=== PATIENT | female | born 1980 | race Caucasian/White ===

== ENCOUNTER 2017-02-13 19:27 | Observation (INO) ==
[2017-02-13 20:01] LABS: Basophils % 0.3 %; Eosinophils % 0.1 %; Hematocrit 33.3 % (35.3-44.9); Hemoglobin 10.2 g/dL (11.5-15.4); Immature Granulocytes % 0.3 % (0-4); Immature Platelets 4.6 % (1.1-6.1); Lymphocytes # 1.6 K/mcL (0.6-4.6); Lymphocytes % 20.4 %; Mean Corpuscular HGB Conc 30.6 g/dL (31.6-35.5); Mean Corpuscular Hemoglobin 26.3 pg (28.0-33.3); Mean Corpuscular Volume 85.8 fL (83.0-100.0); Mean Platelet Volume 10.7 fL (9.4-12.4); Monocytes # 0.5 K/mcL (0.0-1.3); Monocytes % 6.6 %; Neutrophils # 5.7 K/mcL (1.6-8.9); Platelet Count 252 K/mcL (140-400); Red Blood Count 3.88 M/mcL (3.82-4.97); Red Cell Distribution Width 15.3 % (11.5-14.5); Segmented Neutrophils % 72.3 %
[2017-02-13 20:16] LABS: Acetaminophen < 1.0 mcg/mL (10-30); BUN/Creatinine Ratio 10 (6-26); Blood Urea Nitrogen 5 mg/dL (6-20); Carbon Dioxide 21 mEq/L (23-29); Chloride 109 mEq/L (98-107); Ethanol < 10 mg/dL (0-10); Glucose 101 mg/dL (70-105); Osmolality,Calculated 281 (280-300); Potassium 3.6 mEq/L (3.5-5.1); Salicylate < 5.0 mg/dL (15.0-30.0); Sodium 137 mEq/L (136-145); eGFR For African Americans > 60 (> 60); eGFR For Non-African Americans > 60 (> 60)
[2017-02-13 20:19] LABS: Bilirubin,Urine Negative (Negative); Blood,Urine Small (Negative); Clarity,Urine Cloudy (Clear); Color,Urine Yellow (Yellow); Glucose,Urine (UA) Normal (Normal); Ketones,Urine 80 mg/dL (Negative); Leukocyte Esterase,Urine Moderate (Negative); Nitrite,Urine Positive (Negative); PH,Urine 6.5 pH Units (5.0-8.0); Protein,Urine Negative (Neg-Trace); Specific Gravity,Urine 1.011 (1.010-1.025); Urobilinogen,Urine Normal (Normal)
[2017-02-13 20:21] LABS: Bacteria,Urine Many per hpf (None-Few); Hyaline Casts,Urine None Seen per lpf (None-Few); RBC,Urine 0-3 per hpf (0-3); Squamous Epithelial Cell,Urine Many per lpf (None-Few); WBC,Urine 30-50 per hpf (0-3)
[2017-02-13] MEDS ORDERED: Ipratropium/Albuterol Neb 3 ML IH ONE (20:24)
[2017-02-13 20:26] LABS: Amphetamine Screen,Urine Negative ng/mL (Cutoff=1000); Barbiturate Screen,Urine Negative ng/mL (Cutoff=200); Benzodiazepines Screen,Urine Positive ng/mL (Cutoff=200); Cannabinoid Screen,Urine Positive ng/mL (Cutoff = 50); Cocaine Screen,Urine Negative ng/mL (Cutoff= 300); Opiate Screen,Urine Negative ng/mL (Cutoff=300); Phencyclidine Screen,Urine Negative ng/mL (Cutoff=25)
[2017-02-13] MEDS: predniSONE 20 MG TABLET PO ONE ×2 (20:43→20:51)
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
[2017-02-13] MEDS ORDERED: clonazePAM 0.5 MG TABLET PO STA (21:41)
[2017-02-13] MEDS ORDERED: Ibuprofen 800 MG TABLET PO ONE (22:22)
[2017-02-13] MEDS ORDERED: clonazePAM 0.5 MG TABLET PO ONE (22:29)
[2017-02-13] MEDS ORDERED: cephALEXin 250 MG CAPSULE PO ONE (23:06)
[2017-02-14] MEDS ORDERED: traZODone 50 MG TABLET PO PRN
[2017-02-14] MEDS ORDERED: MOM Conc 10 ML UD.LIQ PO PRN
[2017-02-14] MEDS ORDERED: Haloperidol Lactate 5 MG/ML VIAL IM PRN
[2017-02-14] MEDS ORDERED: Mag Hydrox/Al Hydrox/Simeth 30 ML UDC PO PRN
[2017-02-14] MEDS ORDERED: *HR* LORazepam 1 MG TABLET PO PRN
[2017-02-14] MEDS ORDERED: hydrOXYzine pamoate 25 MG CAPSULE PO PRN
[2017-02-14] MEDS ORDERED: *HR* LORazepam 2 MG/ML VIAL IM PRN
[2017-02-14] MEDS ORDERED: Ibuprofen 400 MG TABLET PO PRN (01:16)
[2017-02-14] MEDS ORDERED: Nicotine 21 MG PATCH.TD24 TD SCH (09:00)
[2017-02-14 09:44] VITALS: BP 111/80
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
--- NOTE | 2017-02-15 16:16 | Electrocardiograph Report ---
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
== END 2017-02-14 13:17 | disposition home or self-care (01) ==
LOC: 1ANU 19:27 → EMEROO 19:27 → 1ANU 02-14 00:47
PROVIDERS: ADMIT Psychiatry & Neurology Psychiatry; ATTEND Psychiatry & Neurology Psychiatry

== ENCOUNTER 2017-09-21 23:26 | Inpatient (IN) ==
[2017-09-21] MEDS ORDERED: 0.9 % Sodium Chloride 1,000 ML IVC ONE (23:32)
--- NOTE | 2017-09-22 00:01 | Emergency Department Note ---
Overdose - MDM Narrative Medical decision making narrative: 37-year-old female with intentional ingestion. [place] level elevated here. Spoke with poison control. Recommendations implemented. Patient is admitted to the hospitalist service. [place] slipped for suicide attempt. - Lab Data Lab results reviewed: Yes I reviewed the patient's lab results. Result diagrams: 09/21/17 23:50 09/21/17 23:50 Lab Results 09/21/17 09/21/17 09/21/17 Range/Units 23:45 23:45 23:45 WBC (4.3-11.1) K/mcL RBC (3.82-4.97) M/mcL Hgb (11.5-15.4) g/dL Hct (35.3-44.9) % MCV (83.0-100.0) fL MCH (28.0-33.3) pg MCHC (31.6-35.5) g/dL RDW (11.5-14.5) % Plt Count (140-400) K/mcL MPV (9.4-12.4) fL Immature Gran % (0-4) % Seg Neutrophils % % Lymphocytes % % Monocytes % % Eosinophils % % Basophils % % Neutrophils # (1.6-8.9) K/mcL Lymphocytes # (0.6-4.6) K/mcL Monocytes # (0.0-1.3) K/mcL Eosinophils # (0.0-0.6) K/mcL Basophils # (0.0-0.2) K/mcL Sodium (136-145) mEq/L Potassium (3.5-5.1) mEq/L Chloride (98-107) mEq/L Carbon Dioxide (23-29) mEq/L BUN (6-20) mg/dL Creatinine (0.60-1.20) mg/dL Est GFR ( Amer) (> 60) Est GFR (Non-Af Amer) (> 60) BUN/Creatinine Ratio (6-26) Glucose (70-105) mg/dL Calculated Osmolality (280-300) Calcium (8.6-10.3) mg/dL TSH (0.340-5.600) mcIU/mL Urine Color Yellow (Yellow) Urine Clarity Clear (Clear) Urine pH 7.0 (5.0-8.0) pH Units Ur Specific [place] 1.011 (1.010-1.025) Urine Protein Negative (Neg-Trace) mg/dL Urine Glucose (UA) Normal (Normal) mg/dL Urine Ketones Negative (Negative) mg/dL Urine Blood Negative (Negative) Urine Nitrite Negative (Negative) Urine Bilirubin Negative (Negative) Urine Urobilinogen Normal (Normal) mg/dL Ur Leukocyte Esterase Negative (Negative) Urine Test Negative (Negative) Salicylates (15.0-30.0) mg/dL Urine Opiates Screen Negative (Jmkayr=279) ng/mL Acetaminophen (10-20) mcg/mL Ur Barbiturates Screen Negative (Qjwwma=546) ng/mL Ur Phencyclidine Scrn Negative (Cutoff=25) ng/mL Ur Amphetamines Screen Negative (Vmgolt=6710) ng/mL U Benzodiazepines Scrn Negative (Oqarru=591) ng/mL [place] (0.6-1.2) mEq/L Urine Cocaine Screen Positive H (Cutoff= 300) ng/mL U Marijuana (THC) Screen Positive H (Cutoff = 50) ng/mL Ur Drug Screen Interp See Below Ethyl Alcohol (Less than 10) mg/dL 09/21/17 09/21/17 09/21/17 Range/Units 23:50 23:50 23:50 WBC 5.5 (4.3-11.1) K/mcL RBC 3.93 (3.82-4.97) M/mcL Hgb 11.0 L (11.5-15.4) g/dL Hct 34.5 L (35.3-44.9) % MCV 87.8 (83.0-100.0) fL MCH 28.0 (28.0-33.3) pg MCHC 31.9 (31.6-35.5) g/dL RDW 14.4 (11.5-14.5) % Plt Count 254 (140-400) K/mcL MPV 10.5 (9.4-12.4) fL Immature Gran % 0.4 (0-4) % Seg Neutrophils % 65.5 % Lymphocytes % 25.2 % Monocytes % 5.1 % Eosinophils % 3.1 % Basophils % 0.7 % Neutrophils # 3.6 (1.6-8.9) K/mcL Lymphocytes # 1.4 (0.6-4.6) K/mcL Monocytes # 0.3 (0.0-1.3) K/mcL Eosinophils # 0.2 (0.0-0.6) K/mcL Basophils # 0.0 (0.0-0.2) K/mcL Sodium 137 (136-145) mEq/L Potassium 3.4 L (3.5-5.1) mEq/L Chloride 107 (98-107) mEq/L Carbon Dioxide 23 (23-29) mEq/L BUN 3 L (6-20) mg/dL Creatinine 0.76 (0.60-1.20) mg/dL Est GFR ( Amer) > 60 (> 60) Est GFR (Non-Af Amer) > 60 (> 60) BUN/Creatinine Ratio 4 L (6-26) Glucose 84 (70-105) mg/dL Calculated Osmolality 280 (280-300) Calcium 9.3 (8.6-10.3) mg/dL TSH 1.722 (0.340-5.600) mcIU/mL Urine Color (Yellow) Urine Clarity (Clear) Urine pH (5.0-8.0) pH Units Ur Specific [place] (1.010-1.025) Urine Protein (Neg-Trace) mg/dL Urine Glucose (UA) (Normal) mg/dL Urine Ketones (Negative) mg/dL Urine Blood (Negative) Urine Nitrite (Negative) Urine Bilirubin (Negative) Urine Urobilinogen (Normal) mg/dL Ur Leukocyte Esterase (Negative) Urine Test (Negative) Salicylates < 2.5 L (15.0-30.0) mg/dL Urine Opiates Screen (Lpsjbt=424) ng/mL Acetaminophen < 10 L (10-20) mcg/mL Ur Barbiturates Screen (Opiocr=924) ng/mL Ur Phencyclidine Scrn (Cutoff=25) ng/mL Ur Amphetamines Screen (Cofqiz=1797) ng/mL U Benzodiazepines Scrn (Svykxh=598) ng/mL [place] 2.5 H* (0.6-1.2) mEq/L Urine Cocaine Screen (Cutoff= 300) ng/mL U Marijuana (THC) Screen (Cutoff = 50) ng/mL Ur Drug Screen Interp Ethyl Alcohol 122 H (Less than 10) mg/dL - EKG Data EKG attestation: Yes I reviewed and interpreted this EKG. EKG results narrative: EKG demonstrates sinus rhythm. Prolonged [place] interval of 210. Other intervals normal. No gross ST elevations or depressions. No acute ischemic findings. No changes from prior EKG. Overdose HPI - General Chief Complaint: ED Psychiatric Symptoms Stated Complaint: overdose Time Seen by Provider: 09/21/17 23:31 Source: patient, EMS Mode of arrival: EMS Limitations: no limitations Nursing Notes Reviewed: Yes Vital Signs Reviewed: Yes - History of Present Illness HPI Narrative: 37-year-old female history of bipolar, Personality disorder presents due to intentional ingestion of lithium. At 10:30 PM she took 4300 mg tablets of her own lithium. She reports one to kill herself. She reports drinking this evening as well. EMS was called and she was brought in for evaluation. She denies any other coingestions. Has a prior history of suicide attempt in the past. Currently complaining of feeling tired and nauseous. Pt Subjective Complaint: intentional overdose Time of Ingestion: 22:30 Intent: suicide attempt Associated symptoms: depression Treatments Prior to Arrival: none - Related Data Home Medications Medication Instructions Recorded Confirmed Levothyroxine [Synthroid] 75 mcg PO QAM 02/07/17 09/21/17 [place] Carbonate 150 mg PO DAILY 02/07/17 09/21/17 [place] Carbonate 300 mg PO QAM AND QHS 02/07/17 09/21/17 Gabapentin [Neurontin] 1,200 mg PO QAM AND QHS 02/13/17 09/21/17 Metoprolol [Lopressor] 25 mg PO DAILY 02/13/17 02/13/17 clonazePAM [Klonopin] 2 mg PO HS 02/13/17 09/21/17 amLODIPine [Norvasc] 10 mg PO DAILY 09/21/17 09/21/17 Allergies Allergy/AdvReac Type Severity Reaction Status Date / Time ketorolac [From Toradol] Allergy Rash Verified 09/21/17 23:31 Paroxetine [From Paxil] Allergy Rash Verified 09/21/17 23:31 promethazine [From Phenergan] Allergy Rash Verified 09/21/17 23:31 tramadol Allergy Rash Verified 09/21/17 23:31 Cyclobenzaprine AdvReac Agitated Verified 09/21/17 23:31 [From Flexeril] All systems ED: reviewed and negative except as stated. Cardiovascular: Denies: chest pain Respiratory: Denies: dyspnea Gastrointestinal: Reports: nausea. Denies: abdominal pain, vomiting Neurological: Reports: weakness Past Medical History - Past Medical History Attestation: Yes The following information was validated with the patient. 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 - Social History Smoking Status: Current every day smoker Smokeless Tobacco Status: No Alcohol use: Reports: occasionally Drug use: Reports: none Physical Exam - General Limitations: no limitations General appearance: alert, in no apparent distress - Head Head exam: atraumatic, normocephalic - Eye Eye exam: Present: normal appearance - ENT ENT exam: normal exam - Neck Neck exam: Present: normal inspection - Chest Chest inspection: Present: normal inspection, symmetric chest wall rise - Respiratory Respiratory exam: Present: normal lung sounds bilaterally - Cardiovascular Cardiovascular exam: Present: regular rate, normal rhythm, normal heart sounds - Abdominal Exam Abdominal exam: Present: soft, Non-Tender. Absent: tenderness - Extremities Exam Extremities exam: Present: normal inspection, full ROM - Expanded Upper Extremity Exam Shoulder exam: Present: normal inspection, full ROM Arm exam: Present: normal inspection, full ROM Elbow exam: Present: normal inspection, full ROM Forearm/Wrist exam: Present: normal inspection, full ROM, other (1 cm laceration to the left distal forearm on the ulnar side. Multiple old healed lacerations) Hand exam: Present: normal inspection, full ROM Vascular exam: Normal: capillary refill, radial pulse - Expanded Lower Extremity Exam Hip/Pelvis exam: Present: normal inspection, full ROM Upper leg exam: Present: normal inspection, full ROM Knee exam: Present: normal inspection, full ROM Lower leg exam: Present: normal inspection, full ROM Ankle exam: Present: normal inspection, full ROM Foot/toe exam: Present: normal inspection, full ROM - Neurological Exam Neurological exam: Present: alert, other (GCS 15. Nonfocal exam.) - Psychiatric Psychiatric exam: Present: suicidal ideation Course Course Narrative: Patient seen and examined. Vital signs reviewed. I had spoken with poison control before the patient arrived. No indication for activated charcoal or lavage. Plan to check a lithium level, labs, EKG and admitted. - Consultations Consultation #1: I spoke with the Poison Control Center. Discussed the patient's history exam and concerns. Labs fracture lithium level of 2.5. Electrolytes discussed. They recommend to give her fluids until her urine output is 0.3 mL/kilogram/ hour then transition to half-normal saline at twice maintenance. Also recommend every two-hour lithium and electrolyte/renal function checks and Kayexalate 30 g every 6 hours until her lithium level is normal. Vital Signs Temperature 0 F L 09/21/17 23:39 Pulse Rate 84 09/21/17 23:39 Respiratory Rate 16 09/21/17 23:39 Blood Pressure 127/102 09/21/17 23:39 O2 Sat by Pulse Oximetry 100 09/21/17 23:39 Temperature 0 F L 09/21/17 23:39 Pulse Rate 68 09/22/17 01:11 Respiratory Rate 16 09/22/17 01:11 Blood Pressure 134/105 09/22/17 01:11 O2 Sat by Pulse Oximetry 100 09/22/17 01:11 Oxygen Delivery Oxygen Delivery Room Air Disposition Clinical Impression: Suicide attempt, Intoxication [place] toxicity Qualifiers: Encounter type: initial encounter Injury intent: intentional self-harm Qualified Code(s): T56.892A - Toxic effect of other metals, intentional self- harm, initial encounter Disposition: Admitted As Inpatient Condition: Fair S.Jaycee.Puja - Brian.[email or web address].Marco A Situation: Demographics, MOA Background: Presenting Complaint, Relevant PMH, Meds, & Allergies Assessment: Course and respsone to treatment, Exam Concerns, Patient/Family Expectation, Pertinant Lab Results, Outstanding Labs Recommendation: Barrier(s) to disposition, Recommendation based on pending studies, treatments, or consults S.B.A.Marco A Report Given to: Dr. Ponce Guan Repor Time: 01:02
[2017-09-22 00:10] LABS: Bilirubin,Urine Negative (Negative); Blood,Urine Negative (Negative); Clarity,Urine Clear (Clear); Color,Urine Yellow (Yellow); Glucose,Urine (UA) Normal (Normal); Ketones,Urine Negative (Negative); Leukocyte Esterase,Urine Negative (Negative); Nitrite,Urine Negative (Negative); Protein,Urine Negative (Neg-Trace); Specific Gravity,Urine 1.011 (1.010-1.025); Urobilinogen,Urine Normal (Normal)
[2017-09-22] MEDS ORDERED: Ondansetron 4 MG/2 ML VIAL IVP ONE (00:22)
[2017-09-22 00:26] LABS: Acetaminophen < 10 mcg/mL (10-20); BUN/Creatinine Ratio 4 (6-26); Blood Urea Nitrogen 3 mg/dL (6-20); Calcium 9.3 mg/dL (8.6-10.3); Carbon Dioxide 23 mEq/L (23-29); Chloride 107 mEq/L (98-107); Ethanol 122 mg/dL (Less than 10); Glucose 84 mg/dL (70-105); Osmolality,Calculated 280 (280-300); Potassium 3.4 mEq/L (3.5-5.1); Salicylate < 2.5 mg/dL (15.0-30.0); Sodium 137 mEq/L (136-145); eGFR For Non-African Americans > 60 (> 60)
[2017-09-22 00:28] LABS: Basophils % 0.7 %; Eosinophils # 0.2 K/mcL (0.0-0.6); Eosinophils % 3.1 %; Hematocrit 34.5 % (35.3-44.9); Immature Granulocytes % 0.4 % (0-4); Lymphocytes # 1.4 K/mcL (0.6-4.6); Lymphocytes % 25.2 %; Mean Corpuscular HGB Conc 31.9 g/dL (31.6-35.5); Mean Corpuscular Volume 87.8 fL (83.0-100.0); Mean Platelet Volume 10.5 fL (9.4-12.4); Monocytes # 0.3 K/mcL (0.0-1.3); Monocytes % 5.1 %; Neutrophils # 3.6 K/mcL (1.6-8.9); Platelet Count 254 K/mcL (140-400); Red Blood Count 3.93 M/mcL (3.82-4.97); Red Cell Distribution Width 14.4 % (11.5-14.5); Segmented Neutrophils % 65.5 %
[2017-09-22 00:39] LABS: Thyroid Stimulating Hormone 1.722 mcIU/mL (0.340-5.600)
[2017-09-22] MEDS ORDERED: 0.9 % Sodium Chloride 1,000 ML IVC ONE (00:43)
[2017-09-22 00:48] LABS: Amphetamine Screen,Urine Negative ng/mL (Cutoff=1000); Barbiturate Screen,Urine Negative ng/mL (Cutoff=200); Benzodiazepines Screen,Urine Negative ng/mL (Cutoff=200); Cannabinoid Screen,Urine Positive ng/mL (Cutoff = 50); Cocaine Screen,Urine Positive ng/mL (Cutoff= 300); Opiate Screen,Urine Negative ng/mL (Cutoff=300); Phencyclidine Screen,Urine Negative ng/mL (Cutoff=25)
[2017-09-22] MEDS ORDERED: Naloxone 0.4 MG/ML INJ IVP PRN (01:20)
[2017-09-22] MEDS ORDERED: Potassium Chloride Elixir 20 MEQ/15 ML UDC PO ONE (01:27)
[2017-09-22] MEDS ORDERED: 0.9 % Sodium Chloride 1,000 ML IVC SCH ×3 (01:30→02:55)
--- NOTE | 2017-09-22 01:30 | Emergency Department Note ---
Disposition Clinical Impression: Suicide attempt, Intoxication [place] toxicity Qualifiers: Encounter type: initial encounter Injury intent: intentional self-harm Qualified Code(s): T56.892A - Toxic effect of other metals, intentional self- harm, initial encounter Disposition: Admitted As Inpatient Condition: Fair General Adult HPI - General Chief complaint: ED Psychiatric Symptoms Stated complaint: SI/overdose Time Seen by Provider: 09/21/17 23:31 Source: patient, EMS Mode of arrival: EMS Limitations: no limitations - History of Present Illness Pain Scale: 0 - Related Data Home Medications Medication Instructions Recorded Confirmed Levothyroxine [Synthroid] 75 mcg PO QAM 02/07/17 09/21/17 [place] Carbonate 150 mg PO DAILY 02/07/17 09/21/17 [place] Carbonate 300 mg PO QAM AND QHS 02/07/17 09/21/17 Gabapentin [Neurontin] 1,200 mg PO QAM AND QHS 02/13/17 09/21/17 Metoprolol [Lopressor] 25 mg PO DAILY 02/13/17 02/13/17 clonazePAM [Klonopin] 2 mg PO HS 02/13/17 09/21/17 amLODIPine [Norvasc] 10 mg PO DAILY 09/21/17 09/21/17 Allergies Allergy/AdvReac Type Severity Reaction Status Date / Time ketorolac [From Toradol] Allergy Rash Verified 09/21/17 23:31 Paroxetine [From Paxil] Allergy Rash Verified 09/21/17 23:31 promethazine [From Phenergan] Allergy Rash Verified 09/21/17 23:31 tramadol Allergy Rash Verified 09/21/17 23:31 Cyclobenzaprine AdvReac Agitated Verified 09/21/17 23:31 [From Flexeril] Cardiovascular: Denies: chest pain Respiratory: Denies: dyspnea Gastrointestinal: Reports: nausea. 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 - Social History Smoking Status: Current every day smoker Smokeless Tobacco Status: No Alcohol use: Reports: occasionally Drug use: Reports: none Physical Exam - General Limitations: no limitations General appearance: alert, in no apparent distress Course Vital Signs Temperature 0 F L 09/21/17 23:39 Pulse Rate 84 09/21/17 23:39 Respiratory Rate 16 09/21/17 23:39 Blood Pressure 127/102 09/21/17 23:39 O2 Sat by Pulse Oximetry 100 09/21/17 23:39 Temperature 0 F L 09/21/17 23:39 Pulse Rate 68 09/22/17 01:11 Respiratory Rate 16 09/22/17 01:11 Blood Pressure 134/105 09/22/17 01:11 O2 Sat by Pulse Oximetry 100 09/22/17 01:11 Oxygen Delivery Oxygen Delivery Room Air Medical Decision Making - Lab Data Lab results reviewed: Yes I reviewed the patient's lab results. Result diagrams: 09/21/17 23:50 09/21/17 23:50 Lab Results 09/21/17 09/21/17 09/21/17 Range/Units 23:45 23:45 23:45 WBC (4.3-11.1) K/mcL RBC (3.82-4.97) M/mcL Hgb (11.5-15.4) g/dL Hct (35.3-44.9) % MCV (83.0-100.0) fL MCH (28.0-33.3) pg MCHC (31.6-35.5) g/dL RDW (11.5-14.5) % Plt Count (140-400) K/mcL MPV (9.4-12.4) fL Immature Gran % (0-4) % Seg Neutrophils % % Lymphocytes % % Monocytes % % Eosinophils % % Basophils % % Neutrophils # (1.6-8.9) K/mcL Lymphocytes # (0.6-4.6) K/mcL Monocytes # (0.0-1.3) K/mcL Eosinophils # (0.0-0.6) K/mcL Basophils # (0.0-0.2) K/mcL Sodium (136-145) mEq/L Potassium (3.5-5.1) mEq/L Chloride (98-107) mEq/L Carbon Dioxide (23-29) mEq/L BUN (6-20) mg/dL Creatinine (0.60-1.20) mg/dL Est GFR ( Amer) (> 60) Est GFR (Non-Af Amer) (> 60) BUN/Creatinine Ratio (6-26) Glucose (70-105) mg/dL Calculated Osmolality (280-300) Calcium (8.6-10.3) mg/dL TSH (0.340-5.600) mcIU/mL Urine Color Yellow (Yellow) Urine Clarity Clear (Clear) Urine pH 7.0 (5.0-8.0) pH Units Ur Specific [place] 1.011 (1.010-1.025) Urine Protein Negative (Neg-Trace) mg/dL Urine Glucose (UA) Normal (Normal) mg/dL Urine Ketones Negative (Negative) mg/dL Urine Blood Negative (Negative) Urine Nitrite Negative (Negative) Urine Bilirubin Negative (Negative) Urine Urobilinogen Normal (Normal) mg/dL Ur Leukocyte Esterase Negative (Negative) Urine Test Negative (Negative) Salicylates (15.0-30.0) mg/dL Urine Opiates Screen Negative (Xdjldy=580) ng/mL Acetaminophen (10-20) mcg/mL Ur Barbiturates Screen Negative (Doakdy=453) ng/mL Ur Phencyclidine Scrn Negative (Cutoff=25) ng/mL Ur Amphetamines Screen Negative (Gpdoad=5942) ng/mL U Benzodiazepines Scrn Negative (Gpwvpw=958) ng/mL [place] (0.6-1.2) mEq/L Urine Cocaine Screen Positive H (Cutoff= 300) ng/mL U Marijuana (THC) Screen Positive H (Cutoff = 50) ng/mL Ur Drug Screen Interp See Below Ethyl Alcohol (Less than 10) mg/dL 09/21/17 09/21/17 09/21/17 Range/Units 23:50 23:50 23:50 WBC 5.5 (4.3-11.1) K/mcL RBC 3.93 (3.82-4.97) M/mcL Hgb 11.0 L (11.5-15.4) g/dL Hct 34.5 L (35.3-44.9) % MCV 87.8 (83.0-100.0) fL MCH 28.0 (28.0-33.3) pg MCHC 31.9 (31.6-35.5) g/dL RDW 14.4 (11.5-14.5) % Plt Count 254 (140-400) K/mcL MPV 10.5 (9.4-12.4) fL Immature Gran % 0.4 (0-4) % Seg Neutrophils % 65.5 % Lymphocytes % 25.2 % Monocytes % 5.1 % Eosinophils % 3.1 % Basophils % 0.7 % Neutrophils # 3.6 (1.6-8.9) K/mcL Lymphocytes # 1.4 (0.6-4.6) K/mcL Monocytes # 0.3 (0.0-1.3) K/mcL Eosinophils # 0.2 (0.0-0.6) K/mcL Basophils # 0.0 (0.0-0.2) K/mcL Sodium 137 (136-145) mEq/L Potassium 3.4 L (3.5-5.1) mEq/L Chloride 107 (98-107) mEq/L Carbon Dioxide 23 (23-29) mEq/L BUN 3 L (6-20) mg/dL Creatinine 0.76 (0.60-1.20) mg/dL Est GFR ( Amer) > 60 (> 60) Est GFR (Non-Af Amer) > 60 (> 60) BUN/Creatinine Ratio 4 L (6-26) Glucose 84 (70-105) mg/dL Calculated Osmolality 280 (280-300) Calcium 9.3 (8.6-10.3) mg/dL TSH 1.722 (0.340-5.600) mcIU/mL Urine Color (Yellow) Urine Clarity (Clear) Urine pH (5.0-8.0) pH Units Ur Specific [place] (1.010-1.025) Urine Protein (Neg-Trace) mg/dL Urine Glucose (UA) (Normal) mg/dL Urine Ketones (Negative) mg/dL Urine Blood (Negative) Urine Nitrite (Negative) Urine Bilirubin (Negative) Urine Urobilinogen (Normal) mg/dL Ur Leukocyte Esterase (Negative) Urine Test (Negative) Salicylates < 2.5 L (15.0-30.0) mg/dL Urine Opiates Screen (Xpmrfw=486) ng/mL Acetaminophen < 10 L (10-20) mcg/mL Ur Barbiturates Screen (Mfvtdg=574) ng/mL Ur Phencyclidine Scrn (Cutoff=25) ng/mL Ur Amphetamines Screen (Ytnkno=1055) ng/mL U Benzodiazepines Scrn (Yeitau=172) ng/mL [place] 2.5 H* (0.6-1.2) mEq/L Urine Cocaine Screen (Cutoff= 300) ng/mL U Marijuana (THC) Screen (Cutoff = 50) ng/mL Ur Drug Screen Interp Ethyl Alcohol 122 H (Less than 10) mg/dL - EKG Data EKG #1 EKG attestation: Yes I reviewed and interpreted this EKG. EKG results narrative: EKG shows a sinus rhythm with first-degree AV block. Ventricular rate 70. [place] interval 210. No ST segment elevation or depression. No arrhythmia or ectopy. Critical Care Time Critical Care Time: Yes Total Critical Care Time: 40 Attestation: Critical care performed: Time is exclusive of separately billable procedures. Time includes: direct patient care, patient reassessment, coordination of patient care, interpretation of data (laboratory data, radiology data, and respiratory data), review of patient's medical records, medical consultation and documentation of patient care. Procedures included in critical care time: Procedures excluded from critical care time: Attestation Statement - Attestation Attestation: I, Lavelle Forman MD, personally evaluated this patient and discussed their management with the resident physician. I reviewed the resident's note and agree with the documented findings, medical decision making, and plan of care. 37-year-old female presents to the emergency department with a complaint of an intentional ingestion of approximately 40 tablets of lithium 300 mg. This was not the extended release. Patient states she was trying to kill herself. She has a prior history of suicide attempts. She also tried to cut her left wrist and has a small laceration. Patient states she has been nauseated and has vomited a couple of times since the ingestion. No chest pain or shortness of breath. She also admits to drinking some alcohol. She denies taking any other medications. On examination patient is a well-developed well-nourished female in no acute distress. She is alert and oriented 3. There is no cyanosis or diaphoresis. Patient cooperative. Breath sounds are clear and equal bilaterally. Heart regular rate and rhythm. Abdomen is soft and nontender with normal bowel sounds. There is a small 1 cm laceration to the flexor surface of the left wrist. Poison control was consulted. Labs and EKG reviewed. [place] level is elevated at 2.5. The hospitalist, Dr. Olivera, was consulted and accepted admission of the patient.
[2017-09-22 02:20] LABS: BUN/Creatinine Ratio 5 (6-26); Blood Urea Nitrogen 3 mg/dL (6-20); Calcium 8.3 mg/dL (8.6-10.3); Carbon Dioxide 24 mEq/L (23-29); Chloride 112 mEq/L (98-107); Glucose 80 mg/dL (70-105); Osmolality,Calculated 286 (280-300); Potassium 3.6 mEq/L (3.5-5.1); Sodium 140 mEq/L (136-145); eGFR For Non-African Americans > 60 (> 60)
--- NOTE | 2017-09-22 03:00 | Internal Med History&Physical ---
Date of Encounter: 09/22/17 Time of Encounter: 02:30 Internal Medicine - H&P: HPI Chief complaint: Tried to overdose on lithium today History of present illness: Ms. Hill is a 37 year old female with pmh of hypertension, hypothyroidism, bipolar disorder on lithium presenting with complaints of "i don't want to be here anymore, so I tried to kill myself today." Patient says she does not feel like explaining what triggers she had today that made her want to kill herself, but noted she too about forty 300mg tablets of lithium at about 10.30pm and drank some alcohol as well. She noted she was feeleling drowsy about 30minutes later and decided to call EMS to bring her in. She has had a prior suicide attempt in the past. She currently also complains of sharp abdominal pain with distention. She says she vomited in the ER. She denies any other acute symptom such as fevers. In the ER, lithium levels were elevated at 2.5 and alcohol levels were 122. She says she drinks occasionally. Poison control was contacted and she was started on IV fluids and give one dose of kayexalate Past Med Surg Social Fam HX - Past Medical History Medical history: hypertension, thyroid disease Additional medical history: MS Psychiatric history: anxiety, bipolar, depression, panic disorder, previous psychiatric hospitalization, other - Past Surgical History Surgical History: cholecystectomy, other Additional surgical history: right wrist surgery - EGD - colonoscopy - rectecele - dental - Social History Smoking Status: Current every day smoker Smokeless Tobacco Status: No Alcohol use: occasionally Drug use: none Internal Medicine - H&P: Meds Levothyroxine [Synthroid] 75 mcg PO QAM 02/07/17 [History] [place] Carbonate 150 mg PO DAILY 02/07/17 [History] [place] Carbonate 300 mg PO QAM AND QHS 02/07/17 [History] Gabapentin [Neurontin] 1,200 mg PO QAM AND QHS 02/13/17 [History] Metoprolol [Lopressor] 25 mg PO DAILY 02/13/17 [History] clonazePAM [Klonopin] 2 mg PO HS 02/13/17 [History] amLODIPine [Norvasc] 10 mg PO DAILY 09/21/17 [History] 3 Allergy/AdvReac Type Severity Reaction Status Date / Time ketorolac [From Toradol] Allergy Rash Verified 09/21/17 23:31 Paroxetine [From Paxil] Allergy Rash Verified 09/21/17 23:31 promethazine [From Phenergan] Allergy Rash Verified 09/21/17 23:31 tramadol Allergy Rash Verified 09/21/17 23:31 Cyclobenzaprine AdvReac Agitated Verified 09/21/17 23:31 [From Flexeril] All Systems PM: A 10-system review of systems was performed and is negative for pertinent findings except as documented above in the HPI. - Constitutional Constitutional: lethargy, no chills, no fever(s), no night sweats - EENT Eyes: no change in vision, no discharge, no pain, no photophobia Ears: no ear discharge, no ear pain, no tinnitus Nose, mouth and throat: no dysphagia, no nasal discharge, no neck pain, no sore throat - Cardiovascular Cardiovascular ROS IM: no chest pain, no diaphoresis, no dyspnea, no lightheadedness, no palpitations, no syncope - Respiratory Respiratory: no cough, no dyspnea, no wheezing, no excessive phlegm production - Gastrointestinal Gastrointestinal: no abdominal pain, no diarrhea, no hematemesis, no hematochezia, no melena, no nausea, no vomiting - Genitourinary Genitourinary: no change in urinary stream, no dysuria, no flank pain, no hematuria - Musculoskeletal Musculoskeletal ROS IM: no numbness, no tingling - Integumentary Integumentary IM: no rash, no unusual bruising - Neurological Neurological ROS: no confusion, no convulsions, no focal weakness, no numbness, no tingling, no tremor(s) - Psychiatric Psychiatric: suicidal ideation - Hematologic/Lymphatic Hematologic/Lymphatic: no easy bruising - Constitutional Vitals: Temp Pulse Resp BP Pulse Ox 97.8 F 72 17 134/92 99 09/22/17 02:18 09/22/17 02:18 09/22/17 02:18 09/22/17 02:18 09/22/17 02:18 - Head Head exam: Present: atraumatic, normocephalic - Eye Eye exam: Present: PERRL, conjuntiva pink, sclera anicteric Pupils: Present: PERRL - Neck Neck exam general surgery: Present: supple, trachea midline. Absent: lymphadenopathy - Respiratory Respiratory exam: Present: CTAB. Absent: accessory muscle use, rales, rhonchi, wheezes - Cardiovascular Cardiovascular exam: Present: RRR, +S1, +S2. Absent: diastolic murmur, gallop, rubs, systolic murmur - GI/Abdominal GI/Abdominal exam: Present: distended, normal bowel sounds, soft, tenderness, no peritoneal signs - Extremities Exam Extremities exam: Present: warm, radial pulses palpable and symmetrical. Absent : calf tenderness, cyanotic, pedal edema - Neurological Exam Neurological exam: Present: CN II-XII intact, oriented X3, no focal deficits. Absent: pronater drift, facial droop, speech deficit - Skin Skin exam: Present: dry, intact Internal Med - H&P Results - Labs CBC & Chem 7: 09/21/17 23:50 09/22/17 03:59 Labs: BMP 09/22/17 01:51 Sodium 140 Potassium 3.6 Chloride 112 H Carbon Dioxide 24 BUN 3 L Creatinine 0.66 Glucose 80 Calcium 8.3 L - Assessment and plan (1) [place] poisoning Current Visit: Yes Status: Acute Assessment and plan: Severe lithium poisoning. Pt ingested forty 300mg tablets of lithium along with some alcohol in suicide attempt. [place] levels were 2.5 on arrival. Posion control has been contacted who recommend IV fluids with normal saline till patient is making 3mls/kg/hr of urine or 200ml/hr. Patient has absolutely declined to have cabrera in. Will monitor urine output. Pt was supposed to transition fluids to 1/2 normal saline at 200ml/hr once she was makinf adequate urine output. Will repeat BMP q 2hrs per poison control recs, lithium levels q 2hrs and kayexalate 30g po q 6hrs. Aim for lithium levels less than 1.2. Posion control should be contacted again in am. EKG showed no acute changes suggestive of arrhythmia 5.00am. Last lithium levels were 3.5. Mental status stable. Poison control contacted who suggested levels may be peaking and may begin to fall. Renal has been consulted for dialysis if lithium levels trend higher than 4.5. continue to monitor Qualifiers: Qualified Code(s): T56.892A - Toxic effect of other metals, intentional self- harm, initial encounter (2) Suicide attempt Current Visit: Yes Status: Acute Assessment and plan: With lithium ingestion. Psychiatry consult in am. Continue mgmt for lithium toxicity (3) Borderline personality disorder Current Visit: No Status: Acute Assessment and plan: psych consult in am (4) Abdominal pain Current Visit: Yes Status: Acute Assessment and plan: Unclear etiology. sudden onset after she got to ER. CT abdomen with contrast to r/o any pathology Qualifiers: Qualified Code(s): R10.9 - Unspecified abdominal pain (5) Hypokalemia Current Visit: Yes Status: Acute Assessment and plan: Replaced (6) Alcohol abuse Current Visit: Yes Status: Acute Assessment and plan: Pt says she only drinks alcohol occasionally. Will give IV fluids, hold off on ativan for now due to her lethargy (7) Hypertension Current Visit: Yes Status: Acute Assessment and plan: Continue amlodipine Qualifiers: Qualified Code(s): I10 - Essential (primary) hypertension (8) Hypothyroidism Current Visit: Yes Status: Acute Assessment and plan: On levothyroxine Qualifiers: Qualified Code(s): E03.9 - Hypothyroidism, unspecified (9) DVT prophylaxis Current Visit: Yes Status: Acute Assessment and plan: heparin sc - Time Spent With Patient Total time spent is greater than 50% in coordination of care (as documented) at patient's floor/unit and/or counseling patient:
[2017-09-22] MEDS ORDERED: Isovue-370 500 ML INFUS..BTL IV ONE (03:01)
[2017-09-22 03:13] LABS: Thyroid Stimulating Hormone 1.582 mcIU/mL (0.340-5.600)
[2017-09-22 04:48] LABS: Alanine Aminotransferase 20 Units/L (7-52); Albumin 3.7 g/dL (3.5-5.7); Albumin/Globulin Ratio 1.4 (1.1-2.2); Alkaline Phosphatase 47 Units/L (34-104); Aspartate Amino Transferase 25 Units/L (13-39); BUN/Creatinine Ratio 5 (6-26); Bilirubin,Total 0.3 mg/dL (0.3-1.0); Blood Urea Nitrogen 3 mg/dL (6-20); Calcium 8.1 mg/dL (8.6-10.3); Carbon Dioxide 24 mEq/L (23-29); Chloride 114 mEq/L (98-107); Globulin 2.6 g/dL (2.4-3.5); Glucose 76 mg/dL (70-105); Osmolality,Calculated 287 (280-300); Potassium 3.6 mEq/L (3.5-5.1); Sodium 141 mEq/L (136-145); Total Protein 6.3 g/dL (6.4-8.9); eGFR For Non-African Americans > 60 (> 60)
[2017-09-22] MEDS: *HR* Heparin 5,000 UNIT/ML VIAL SQ SCH ×2 (05:29→18:06)
[2017-09-22] MEDS: Acetaminophen 325 MG TABLET PO PRN ×2 (05:29→13:41)
[2017-09-22] MEDS: Ondansetron 4 MG/2 ML VIAL IVP SCH ×4 (05:30→23:49)
[2017-09-22 07:07] LABS: BUN/Creatinine Ratio 6 (6-26); Blood Urea Nitrogen 4 mg/dL (6-20); Calcium 8.2 mg/dL (8.6-10.3); Carbon Dioxide 22 mEq/L (23-29); Chloride 113 mEq/L (98-107); Glucose 73 mg/dL (70-105); Magnesium 1.8 mg/dL (1.6-2.6); Osmolality,Calculated 283 (280-300); Phosphorous 2.7 mg/dL (2.7-4.5); Potassium 3.9 mEq/L (3.5-5.1); Sodium 139 mEq/L (136-145); eGFR For Non-African Americans > 60 (> 60)
[2017-09-22] MEDS: amLODIPine 5 MG TABLET PO SCH (08:38)
[2017-09-22 11:18] LABS: Basophils % 0.1 %; Eosinophils % 0.1 %; Hematocrit 31.9 % (35.3-44.9); Immature Granulocytes % 0.1 % (0-4); Lymphocytes # 0.8 K/mcL (0.6-4.6); Lymphocytes % 10.7 %; Mean Corpuscular HGB Conc 31.3 g/dL (31.6-35.5); Mean Corpuscular Hemoglobin 27.5 pg (28.0-33.3); Mean Corpuscular Volume 87.9 fL (83.0-100.0); Monocytes # 0.3 K/mcL (0.0-1.3); Monocytes % 3.8 %; Neutrophils # 6.1 K/mcL (1.6-8.9); Platelet Count 207 K/mcL (140-400); Red Blood Count 3.63 M/mcL (3.82-4.97); Red Cell Distribution Width 14.2 % (11.5-14.5); Segmented Neutrophils % 85.2 %
--- NOTE | 2017-09-22 11:23 | Nephrology Consult Note ---
Date of Encounter: 09/22/17 Time of Encounter: 10:53 Assessment and Plan (1) [place] poisoning Current Visit: Yes Status: Acute Per report patient took about 40 lithium pills. She has a detectable and a rising lithium level. At the time of my evaluation she had a lithium level IV.5 , and we were awaiting a repeat lithium level. I was just informed that her repeat lithium level came back at 15. Arrangements are being made for dialysis. At the time my evaluation her mental status is still clear and she is hemodynamically stable. The patient verbally consents to both line placement as well as dialysis Plan for extended dialysis both today as well as tomorrow. With the elevated lithium level I did speak with the covering hospitalist and requested that she transfer the patient into the intensive care unit. The the move is occurring as a speak. 37 minutes were spent in the care of this critically ill patient not including additional time for placing a dialysis line. Qualifiers: Qualified Code(s): T56.891A - Toxic effect of other metals, accidental ( unintentional), initial encounter (2) Hypertension Current Visit: Yes Status: Acute Titrate antihypertensive medication as needed. Qualifiers: Qualified Code(s): I10 - Essential (primary) hypertension (3) Hypokalemia Current Visit: Yes Status: Acute Replace potassium as needed. (4) Hypothyroidism Current Visit: Yes Status: Acute Continue home medications. Qualifiers: Qualified Code(s): E03.9 - Hypothyroidism, unspecified History of Present Illness - Reason for Consult Consult date: 09/22/17 - Chief Complaint Overdose - History of Present Illness Ms. Hill is a 37 yo woman with a history of bipolar disorder presents after a suicide attempt. History is obtained from both review of the medical records as well as talking with the patient. At the time my evaluation the patient is on suicide watch with a sitter in the room. She is easily arousable and answers questions appropriate. Apparently the patient did not want to be here anymore and took multiple lithium pills. In the ER she was found to have a detectable lithium level and nephrology was consulted secondary to the possible need for dialysis. When talking with the patient I did inform her dad's she would likely need dialysis. She was agreeable and verbally consented to the procedure. At the time my evaluation she is denying any chest pain, shortness of breath, nausea, vomiting, or diarrhea. Past Med Surg Social Fam HX - Past Medical History Medical history: hypertension, thyroid disease Additional medical history: MS Psychiatric history: anxiety, bipolar, depression, panic disorder, previous psychiatric hospitalization, other - Past Surgical History Surgical History: cholecystectomy, other Additional surgical history: right wrist surgery - EGD - colonoscopy - rectecele - dental - Social History Smoking Status: Current every day smoker Smokeless Tobacco Status: No Alcohol use: occasionally Drug use: none Medications and Allergies Levothyroxine [Synthroid] 75 mcg PO QAM 02/07/17 [History] [place] Carbonate 150 mg PO BID 02/07/17 [History] [place] Carbonate 300 mg PO TID 02/07/17 [History] Gabapentin [Neurontin] 1,200 mg PO BID 02/13/17 [History] clonazePAM [Klonopin] 2 mg PO HS 02/13/17 [History] amLODIPine [Norvasc] 10 mg PO DAILY 09/21/17 [History] Metoprolol Succinate [Toprol Xl] 50 mg PO DAILY 09/22/17 [History] valACYclovir [Valtrex] 500 mg PO BID 09/22/17 [History] 3 Allergy/AdvReac Type Severity Reaction Status Date / Time ketorolac [From Toradol] Allergy Rash Verified 09/21/17 23:31 Paroxetine [From Paxil] Allergy Rash Verified 09/21/17 23:31 promethazine [From Phenergan] Allergy Rash Verified 09/21/17 23:31 tramadol Allergy Rash Verified 09/21/17 23:31 Cyclobenzaprine AdvReac Agitated Verified 09/21/17 23:31 [From Flexeril] Review of Systems All Systems: reviewed and no additional remarkable complaints except as stated ( As per history of present illness.) Exam - Vital Signs Vital signs: Initial Vital Signs Temp Pulse Resp BP Pulse Ox 0 F L 84 16 127/102 100 09/21/17 23:39 09/21/17 23:39 09/21/17 23:39 09/21/17 23:39 09/21/17 23:39 Vital Signs - Last 8 Hours Temp Pulse Resp BP Pulse Ox 09/22/17 08:17 98.1 F 60 17 133/83 100 09/22/17 06:30 98.1 F 71 16 145/80 100 09/22/17 04:23 72 Intake and Output 09/21/17 09/22/17 09/22/17 23:59 07:59 15:59 Intake Total 1030 / 2030 1700 / 1700 Output Total 1850 / 1850 850 / 850 Balance -820 / 180 850 / 850 Intake: IV Fluids 550 / 550 1000 / 1000 0.45% Sodium Chloride 1000 Ml 1000 / 1000 1000 Ml 1,000 ML @ 250 mls/hr IVC .Q4H [facility] Rx#:[id number] 0.9 % Sodium Chloride 1,000 ML 550 / 550 @ 200 mls/hr IVC .Q5H [facility] Rx#: [id number] Oral 480 / 480 700 / 700 Output: Urine 975 / 975 500 / 500 Urine/Stool Mix 575 / 575 350 / 350 Emesis 100 / 100 Catheter 200 / 200 Other: Meal Lemon [place] Refused Breakfast Percent of Meal Consumed 0% Stool Size Moderate Moderate Stool Consistency liquid liquid Stool Characteristics Normal for Patient Mucoid Stool Color Yellow Yellow # Bowel Movements 1 Weight 62.2 kg Patient Weight 09/22/17 23:59 Weight 62.2 kg - General Appearance General appearance: well-developed, well-nourished, obese EENT: ATNC Neck: supple Respiratory: course breath sounds Cardiology: no edema, regular rate, regular rhythm Gastrointestinal: no tenderness, obese Integumentary: warm and dry Neurologic: alert and oriented x3 Musculoskeletal: no cyanosis Psychiatric: mood/affect appropriate Results - Lab Results 09/22/17 10:45 09/22/17 10:45 Most recent lab results Calcium 8.2 mg/dL (8.6-10.3) L 09/22/17 06:21 Phosphorus 2.7 mg/dL (2.7-4.5) 09/22/17 06:21 Magnesium 1.8 mg/dL (1.6-2.6) 09/22/17 06:21 Consult Discharge Plan - Plan Referrals: NONE,PCP [Primary Care Provider] -
[2017-09-22 11:39] LABS: BUN/Creatinine Ratio 7 (6-26); Blood Urea Nitrogen 4 mg/dL (6-20); Calcium 8.3 mg/dL (8.6-10.3); Carbon Dioxide 24 mEq/L (23-29); Chloride 109 mEq/L (98-107); Glucose 73 mg/dL (70-105); Osmolality,Calculated 275 (280-300); Potassium 2.9 mEq/L (3.5-5.1); Sodium 135 mEq/L (136-145); eGFR For Non-African Americans > 60 (> 60)
[2017-09-22 12:16] LABS: Hepatitis B Surface Antigen Nonreactive (Nonreactive)
--- NOTE | 2017-09-22 12:44 | Consult Note ---
Date of Encounter: 09/22/17 Time of Encounter: 12:35 Assessment & Recommendation (1) Bipolar disorder Current visit: No Status: Acute Assessment & Recommendation: Would not continue home meds until medically stable. Continue to monitor kidney function and treat per Nephrology recommendations. Can admit to inpatient psych when medically clear. Qualifiers: Active/Remission status: currently active Current bipolar episode type: depressed Current episode severity: severe Psychotic features: without psychotic features Qualified Code(s): F31.4 - Bipolar disorder, current episode depressed, severe, without psychotic features (2) Borderline personality disorder Current visit: No Status: Acute History of Present Illness Requesting Physician: Colin Serra Reason for consult: lithium overdose History of present illness: Ms. Hill is a 37 year old female who was admitted following a lithium overdose. Currently being evaluated for dialysis. Monitoring [place] levels. Today client reports she feels sick and does not want to talk. Admits overdose was a suicide attempt. Denies she is suicidal now. Has a history of multiple overdose attempts and multiple inpatient admissions. Diagnosed with Bipolar Disorder. Linked with an outpatient prescriber who client states gives her [place], Neurontin, and Klonopin. Denies recent AOD use. Denies recent medical problems other than hypertension. CC: Colin Serra Past Med Surg Social Fam HX - Past Medical History Medical history: hypertension, thyroid disease - Past Psychiatric History Psychiatric history: Reports: bipolar, prior suicide attempt, previous psychiatric hospitalization Family psychiatric history: Unknown Family History of Suicide: Unknown - Past Surgical History Surgical History: cholecystectomy, other - Social History Smoking Status: Current every day smoker Smokeless Tobacco Status: No Alcohol use: occasionally Drug use: none Medications & Allergies Levothyroxine [Synthroid] 75 mcg PO QAM 02/07/17 [History] [place] Carbonate 150 mg PO BID 02/07/17 [History] [place] Carbonate 300 mg PO TID 02/07/17 [History] Gabapentin [Neurontin] 1,200 mg PO BID 02/13/17 [History] clonazePAM [Klonopin] 2 mg PO HS 02/13/17 [History] amLODIPine [Norvasc] 10 mg PO DAILY 09/21/17 [History] Metoprolol Succinate [Toprol Xl] 50 mg PO DAILY 09/22/17 [History] valACYclovir [Valtrex] 500 mg PO BID 09/22/17 [History] 3 Allergy/AdvReac Type Severity Reaction Status Date / Time ketorolac [From Toradol] Allergy Rash Verified 09/21/17 23:31 Paroxetine [From Paxil] Allergy Rash Verified 09/21/17 23:31 promethazine [From Phenergan] Allergy Rash Verified 09/21/17 23:31 tramadol Allergy Rash Verified 09/21/17 23:31 Cyclobenzaprine AdvReac Agitated Verified 09/21/17 23:31 [From Flexeril] Review of Systems Constitutional: Reports: weakness Eyes: Denies: eye pain, vision change Ears, Nose, Throat: Denies: ear pain, throat pain, dental pain, hearing loss, congestion Cardiovascular: Denies: chest pain, palpitations, dyspnea on exertion Respiratory: Denies: cough, dyspnea, wheezes Gastrointestinal: Reports: abdominal pain, nausea Genitourinary female: Denies: urgency, dysuria, frequency, abnormal menses, dyspareunia Musculoskeletal: Denies: joint swelling, joint pain Integumentary: Denies: rash, lesions, pruritus Neurological: Reports: other Psychiatric: Reports: depression Endocrine: Denies: fatigue, heat or cold intolerance Hematologic/Lymphatic: Denies: easy bruising, lymphadenopathy Allergic/Immunologic: Denies: urticaria, itchy eyes Psychiatry Exam - Constitutional Vitals: Temp Pulse Resp BP Pulse Ox 99.5 F 63 16 116/69 97 09/22/17 10:50 09/22/17 10:50 09/22/17 10:50 09/22/17 10:50 09/22/17 10:50 General appearance: age & developmentally appropriate - Musculoskeletal Gait: normal Station: relaxed Strength & Tone: normal for patient - Psychiatric Patient Orientation: Yes Person, Yes Time, Yes Place Level of alertness: Alert Behavior: withdrawn Psychomotor activity: Normal Eye Contact: Minimal Contact Mood Description: Depressed Affect description: congruent with mood Speech Volume: Normal Speech pattern: normal rate, normal rhythm, normal tone, fluent, spontaneous Language & Vocabulary: consistent with education Thought Process: Linear Thought Content: No Suicidal ideation, No Homicidal ideation, No Overt delusions Perceptual Disturbances: No Auditory hallucinations, No Visual hallucinations Attention Span Ability: Capable of Focused Attention Memory Description: Grossly Intact Patient Reliability: Reliable Historian Fund of knowledge: Yes abstraction ability, Yes aware of current events Intelligence Estimate: Average Judgment: Limited Insight: Partial Results - Drug Levels and Toxicology Drug Levels and Toxicology: Drug Levels and Toxicity 09/22/17 09/22/17 09/22/17 01:51 03:59 05:50 [place] 2.5 H* 3.5 H* 4.6 H* - Labs Labs: Laboratory Last Values WBC 7.1 K/mcL (4.3-11.1) 09/22/17 10:45 RBC 3.63 M/mcL (3.82-4.97) L 09/22/17 10:45 Hgb 10.0 g/dL (11.5-15.4) L 09/22/17 10:45 Hct 31.9 % (35.3-44.9) L 09/22/17 10:45 MCV 87.9 fL (83.0-100.0) 09/22/17 10:45 MCH 27.5 pg (28.0-33.3) L 09/22/17 10:45 MCHC 31.3 g/dL (31.6-35.5) L 09/22/17 10:45 RDW 14.2 % (11.5-14.5) 09/22/17 10:45 Plt Count 207 K/mcL (140-400) 09/22/17 10:45 MPV 11.0 fL (9.4-12.4) 09/22/17 10:45 Immature Gran % 0.1 % (0-4) 09/22/17 10:45 Seg Neutrophils % 85.2 % 09/22/17 10:45 Lymphocytes % 10.7 % 09/22/17 10:45 Monocytes % 3.8 % 09/22/17 10:45 Eosinophils % 0.1 % 09/22/17 10:45 Basophils % 0.1 % 09/22/17 10:45 Neutrophils # 6.1 K/mcL (1.6-8.9) 09/22/17 10:45 Lymphocytes # 0.8 K/mcL (0.6-4.6) 09/22/17 10:45 Monocytes # 0.3 K/mcL (0.0-1.3) 09/22/17 10:45 Eosinophils # 0.0 K/mcL (0.0-0.6) 09/22/17 10:45 Basophils # 0.0 K/mcL (0.0-0.2) 09/22/17 10:45 Sodium 135 mEq/L (136-145) L 09/22/17 10:45 Potassium 2.9 mEq/L (3.5-5.1) L D 09/22/17 10:45 Chloride 109 mEq/L (98-107) H 09/22/17 10:45 Carbon Dioxide 24 mEq/L (23-29) 09/22/17 10:45 BUN 4 mg/dL (6-20) L 09/22/17 10:45 Creatinine 0.61 mg/dL (0.60-1.20) 09/22/17 10:45 Est GFR ( Amer) > 60 (> 60) 09/22/17 10:45 Est GFR (Non-Af Amer) > 60 (> 60) 09/22/17 10:45 BUN/Creatinine Ratio 7 (6-26) 09/22/17 10:45 Glucose 73 mg/dL (70-105) 09/22/17 10:45 Calculated Osmolality 275 (280-300) L 09/22/17 10:45 Calcium 8.3 mg/dL (8.6-10.3) L 09/22/17 10:45 Phosphorus 2.7 mg/dL (2.7-4.5) 09/22/17 06:21 Magnesium 1.8 mg/dL (1.6-2.6) 09/22/17 06:21 Total Bilirubin 0.3 mg/dL (0.3-1.0) 09/22/17 03:59 AST 25 Units/L (13-39) 09/22/17 03:59 ALT 20 Units/L (7-52) 09/22/17 03:59 Alkaline Phosphatase 47 Units/L (34-104) 09/22/17 03:59 Serum Total Protein 6.3 g/dL (6.4-8.9) L 09/22/17 03:59 Albumin 3.7 g/dL (3.5-5.7) 09/22/17 03:59 Globulin 2.6 g/dL (2.4-3.5) 09/22/17 03:59 Albumin/Globulin Ratio 1.4 (1.1-2.2) 09/22/17 03:59 TSH 1.582 mcIU/mL (0.340-5.600) 09/22/17 01:51 Urine Color Yellow (Yellow) 09/21/17 23:45 Urine Clarity Clear (Clear) 09/21/17 23:45 Urine pH 7.0 pH Units (5.0-8.0) 09/21/17 23:45 Ur Specific [place] 1.011 (1.010-1.025) 09/21/17 23:45 Urine Protein Negative mg/dL (Neg-Trace) 09/21/17 23:45 Urine Glucose (UA) Normal mg/dL (Normal) 09/21/17 23:45 Urine Ketones Negative mg/dL (Negative) 09/21/17 23:45 Urine Blood Negative (Negative) 09/21/17 23:45 Urine Nitrite Negative (Negative) 09/21/17 23:45 Urine Bilirubin Negative (Negative) 09/21/17 23:45 Urine Urobilinogen Normal mg/dL (Normal) 09/21/17 23:45 Ur Leukocyte Esterase Negative (Negative) 09/21/17 23:45 Urine Test Negative (Negative) 09/21/17 23:45 Salicylates < 2.5 mg/dL (15.0-30.0) L 09/21/17 23:50 Urine Opiates Screen Negative ng/mL (Erbdhs=330) 09/21/17 23:45 Acetaminophen < 10 mcg/mL (10-20) L 09/21/17 23:50 Ur Barbiturates Screen Negative ng/mL (Jrhspp=497) 09/21/17 23:45 Ur Phencyclidine Scrn Negative ng/mL (Cutoff=25) 09/21/17 23:45 Ur Amphetamines Screen Negative ng/mL (Rsbljr=2843) 09/21/17 23:45 U Benzodiazepines Scrn Negative ng/mL (Xrizpt=132) 09/21/17 23:45 [place] 4.6 mEq/L (0.6-1.2) H* 09/22/17 05:50 Urine Cocaine Screen Positive ng/mL (Cutoff= 300) H 09/21/17 23:45 U Marijuana (THC) Screen Positive ng/mL (Cutoff = 50) H 09/21/17 23:45 Ur Drug Screen Interp See Below 09/21/17 23:45 Ethyl Alcohol 122 mg/dL (Less than 10) H 09/21/17 23:50 Hep Bs Antigen Nonreactive (Nonreactive) 09/22/17 10:46 Consult Discharge Plan - Plan Referrals: NONE,PCP [Primary Care Provider] -
[2017-09-22] MEDS ORDERED: Ipratropium/Albuterol Neb 3 ML IH PRN (14:05)
[2017-09-22] MEDS ORDERED: 0.9 % Sodium Chloride 1,000 ML ONE ×2 (15:00→16:15)
--- NOTE | 2017-09-22 15:18 | Event Note ---
Date of Encounter: 09/22/17 Time of Encounter: 15:16 Patient was evaluated and examined. Reviewed the lab with trending up lithium with latest level 15 therefore informed health therapist who is arranging for immediate hemodialysis and patient will be transferred to ICU after dialysis. Following with poison control and they recommended bowel irrigation therefore NG tube was placed as patient was refusing to take orally. Psychiatrists has evaluated the patient and okay to transfer inpatient psych facility after medical clearance.
[2017-09-22] MEDS ORDERED: *HR* Heparin 10,000 UNIT/10 ML VIAL IV PRN (15:24)
[2017-09-22] MEDS ORDERED: 0.9 % Sodium Chloride 250 ML IVC PRN (15:24)
[2017-09-22] MEDS ORDERED: 0.9 % Sodium Chloride 1,000 ML PRIME SCH (15:30)
--- NOTE | 2017-09-22 17:08 | Nephrology Procedure Note ---
Date of procedure: 09/22/17 Pre-op diagnosis: lithium overdose Post-op diagnosis: same Procedure Performed: femoral dialysis catheter Procedure: Right femoral vein non tunneled dialysis catheter. Anesthesia: local Surgeon: Alvino Quach Was there an programs assistant present: Yes Sports Manager: Manpreet Salazar Estimated blood loss (cc): 5 Specimens collected: n/a Condition: stable Disposition: no change (Verbal and written consents were obtained. Right femoral vein was identified under ultrasound. 1%lidocaine was used for local anesthesia. Access to the vein was obtained with small needle initially followed by the guidewire needle. Guidewire was advanced without difficulty, but patient reported discomfort with advancing. Position was confirmed. Attempt to place dilator was unsuccessful secondary to patient discomfort. Attempt aborted. Contacted IR to place line. They estimate they will arrive in about an hour. Coags ordered.)
[2017-09-22 17:22] LABS: Prothrombin Time 11.7 Seconds (9.4-12.1)
[2017-09-22 17:34] LABS: BUN/Creatinine Ratio 4 (6-26); Blood Urea Nitrogen 3 mg/dL (6-20); Calcium 7.8 mg/dL (8.6-10.3); Carbon Dioxide 24 mEq/L (23-29); Chloride 107 mEq/L (98-107); Creatine Kinase 67 Units/L (30-223); Glucose 83 mg/dL (70-105); Osmolality,Calculated 276 (280-300); Potassium 2.7 mEq/L (3.5-5.1); Sodium 135 mEq/L (136-145); eGFR For Non-African Americans > 60 (> 60)
[2017-09-22] MEDS ORDERED: *HR* Heparin 5,000 UNIT/ML VIAL ONE (18:20)
[2017-09-22 18:27] LABS: Hematocrit 31.3 % (35.3-44.9); Hemoglobin 9.9 g/dL (11.5-15.4); Immature Granulocytes % 0.4 % (0-4); Lymphocytes # 0.9 K/mcL (0.6-4.6); Lymphocytes % 12.9 %; Mean Corpuscular HGB Conc 31.6 g/dL (31.6-35.5); Mean Corpuscular Hemoglobin 28.3 pg (28.0-33.3); Mean Corpuscular Volume 89.4 fL (83.0-100.0); Mean Platelet Volume 11.3 fL (9.4-12.4); Monocytes # 0.4 K/mcL (0.0-1.3); Monocytes % 5.2 %; Neutrophils # 5.5 K/mcL (1.6-8.9); Platelet Count 157 K/mcL (140-400); Red Cell Distribution Width 14.3 % (11.5-14.5); Segmented Neutrophils % 81.5 %
--- NOTE | 2017-09-22 18:36 | IR Procedure Note ---
Date of procedure: 09/22/17 Consent Obtained: Verbal consent, Written consent Timeout: Correct patient and procedure verified, Correct site verified, Time out performed, Skin prep completed Local anesthetic: Lidocaine 1% Indications: Need for hemodialysis Procedure Performed: Temp HD catheter placement Was there an assistant finance manager present: No Site/Technique: Right IJ temp HD catheter placed bedside Results/Findings: Catheter placed in right IJ Estimated blood loss (cc): 2 Complications: None; Tolerated procedure well Post Procedure Treatment Plan: May use HD catheter for dialysis Specimen: None
[2017-09-22 18:38] LABS: BUN/Creatinine Ratio 4 (6-26); Blood Urea Nitrogen 3 mg/dL (6-20); Calcium 7.7 mg/dL (8.6-10.3); Carbon Dioxide 22 mEq/L (23-29); Chloride 107 mEq/L (98-107); Glucose 81 mg/dL (70-105); Osmolality,Calculated 274 (280-300); Potassium 2.7 mEq/L (3.5-5.1); Sodium 134 mEq/L (136-145); eGFR For Non-African Americans > 60 (> 60)
[2017-09-22] MEDS ORDERED: clonazePAM 1 MG TABLET PO SCH (22:15)
[2017-09-22 23:21] LABS: Blood Urea Nitrogen < 2 mg/dL (6-20); Carbon Dioxide 27 mEq/L (23-29); Chloride 106 mEq/L (98-107); Glucose 85 mg/dL (70-105); Potassium 2.7 mEq/L (3.5-5.1); Sodium 139 mEq/L (136-145); eGFR For Non-African Americans > 60 (> 60)
[2017-09-23] MEDS: Acetaminophen 325 MG TABLET PO PRN ×3 (02:13→17:24)
[2017-09-23] MEDS: Ondansetron 4 MG/2 ML VIAL IVP SCH (05:05)
[2017-09-23] MEDS: *HR* Heparin 5,000 UNIT/ML VIAL SQ SCH ×2 (05:05→17:24)
[2017-09-23 05:19] LABS: Basophils % 0.1 %; Eosinophils % 0.4 %; Hematocrit 27.4 % (35.3-44.9); Hemoglobin 8.7 g/dL (11.5-15.4); Immature Granulocytes % 0.4 % (0-4); Lymphocytes # 1.3 K/mcL (0.6-4.6); Lymphocytes % 17.5 %; Mean Corpuscular HGB Conc 31.8 g/dL (31.6-35.5); Mean Corpuscular Hemoglobin 28.2 pg (28.0-33.3); Mean Platelet Volume 10.4 fL (9.4-12.4); Monocytes # 0.6 K/mcL (0.0-1.3); Monocytes % 7.9 %; Neutrophils # 5.6 K/mcL (1.6-8.9); Platelet Count 158 K/mcL (140-400); Red Blood Count 3.08 M/mcL (3.82-4.97); Segmented Neutrophils % 73.7 %
[2017-09-23 05:40] LABS: BUN/Creatinine Ratio 3 (6-26); Blood Urea Nitrogen 2 mg/dL (6-20); Calcium 7.3 mg/dL (8.6-10.3); Carbon Dioxide 28 mEq/L (23-29); Chloride 105 mEq/L (98-107); Glucose 105 mg/dL (70-105); Osmolality,Calculated 277 (280-300); Potassium 2.4 mEq/L (3.5-5.1); Sodium 135 mEq/L (136-145); eGFR For Non-African Americans > 60 (> 60)
[2017-09-23] MEDS ORDERED: Potassium Chloride Elixir 20 MEQ/15 ML UDC PO ONE (06:46)
[2017-09-23] MEDS ORDERED: Potassium Effervescent 25 MEQ TABLET.EFF PO SCH ×2 (07:45→19:45)
[2017-09-23] MEDS: amLODIPine 5 MG TABLET PO SCH (08:16)
[2017-09-23] MEDS ORDERED: Gabapentin 400 MG CAPSULE PO SCH (09:00)
[2017-09-23] MEDS ORDERED: Ondansetron 4 MG/2 ML VIAL IVP PRN ×2 (11:13→13:22)
--- NOTE | 2017-09-23 12:07 | Internal Med Progress Note ---
<Richardson Beltran R - Last Filed: 09/23/17 13:08> Hospitalist Progress Note - Encounter Date of Encounter: 09/23/17 Time of Encounter: 12:04 - Subjective Interval History: 37-year-old female admitted with lithium toxicity secondary to suicide attempt. [place] level elevated to greater than 15, and the patient received urgent hemodialysis last night per nephrology. She also admitted to drinking alcohol and alcohol level was 122. Psychiatry saw evaluated the patient and recommended hold home meds until medically stable and to contact them when she is medically clear for further evaluation. This morning she reports that she is feeling much better compared to yesterday. She is no longer drowsy, she is alert and answering questions. She states that her abdominal pain is now resolved. She denies other symptoms. Denies fevers, chills, chest pain, dyspnea, nausea, vomiting, change in bowels, dysuria , or lower extremity edema. Denies tremors or hallucinations. She reports that her mood is better today as well. - Exam Vitals: Temp Pulse Resp BP Pulse Ox 98.2 F 80 14 119/75 100 09/23/17 07:15 09/23/17 11:00 09/23/17 11:00 09/23/17 11:00 09/23/17 11:00 Exam: GEN: No acute distress, A&O3 HEAD: Atraumatic, normocephalic EYES: Pupils symmetric, sclera white, conjunctiva pink HEART: RRR, normal S1 and S2, no murmurs LUNGS: Clear to auscultation bilaterally, no wheezes, rhonchi, or crackles ABD: Soft, nontender, nondistended, bowel sounds present EXT: No edema noted, pulses 2/4 NEURO: No focal deficits, cooperative with exam - Assessment and Plan (1) [place] poisoning Current Visit: Yes Status: Acute Assessment and Plan: Patient takes lithium for bipolar disorder, she admits to taking excess along with alcohol and suicide attempt [place] level was 2.5 on arrival, but increase to > 15 - Now lithium 2.0 after urgent dialysis yesterday - Poison control recommends a lithium level > 1.2, continue current management Patient with good UOP, 4160ml out yesterday amd 1825ml out so far today Nephrology following, appreciate recommendations - OK to remove HD catheter Continue to monitor patient's symptoms and lithium levels Ok to transfer out of ICU Continue telemetry and sitter (2) Suicide attempt Current Visit: Yes Status: Acute Assessment and Plan: Psychiatry consulted and evaluated the patient, recommended contacting them once the patient is medically stable Continue sitter (3) Bipolar disorder Current Visit: Yes Status: Chronic Assessment and Plan: History of bipolar disorder, psychiatry following (4) Hypokalemia Current Visit: Yes Status: Acute Assessment and Plan: Potassium 2.4 this morning, replaced - recheck 3.7 Will recheck this afternoon and continue replacement as needed Continue to monitor Continue telemetry (5) Abdominal pain Current Visit: Yes Status: Resolved Assessment and Plan: Resolved. Cancel abdominal CT (6) Alcohol abuse Current Visit: Yes Status: Acute Assessment and Plan: Patient reports intermittent alcohol use, no signs and symptoms of acute withdrawal Continue to monitor symptoms (7) Hypertension Current Visit: Yes Status: Acute Assessment and Plan: Normotensive. Continue medications (8) Hypothyroidism Current Visit: Yes Status: Acute Assessment and Plan: TSH normal. Continue Synthroid DVT Prophylaxis: Subcutaneous heparin - Time Spent with Patient Total time spent is greater than 50% in coordination of care (as documented) at patient's floor/unit and/or counseling patient: Internal Medicine: Result - Labs CBC & Chem 7: 09/23/17 05:05 09/23/17 12:05 Labs: Short CBC 09/22/17 09/23/17 Range/Units 16:56 05:05 WBC 6.7 7.6 (4.3-11.1) K/mcL Hgb 9.9 L 8.7 L (11.5-15.4) g/dL Hct 31.3 L 27.4 L (35.3-44.9) % Plt Count 157 158 (140-400) K/mcL Neutrophils # 5.5 5.6 (1.6-8.9) K/mcL BMP 09/22/17 09/22/17 09/22/17 15:50 16:56 22:29 Sodium 135 L 134 L 139 Potassium 2.7 L 2.7 L 2.7 L Chloride 107 107 106 Carbon Dioxide 24 22 L 27 BUN 3 L 3 L < 2 L Creatinine 0.73 0.73 0.43 L Glucose 83 81 85 Calcium 7.8 L 7.7 L 8.0 L 09/23/17 05:05 Sodium 135 L Potassium 2.4 L* Chloride 105 Carbon Dioxide 28 BUN 2 L Creatinine 0.60 Glucose 105 Calcium 7.3 L Cardiac Enzymes 09/22/17 Range/Units 14:03 Troponin I < 0.03 (< 0.04) ng/mL - ABG Interpretation ABG results: PT/INR, D-dimer PT 11.7 Seconds (9.4-12.1) 09/22/17 14:58 - Impressions Impressions Chest X-Ray 09/22/17 18:33 IMPRESSION: Status post placement of right internal jugular temporary dialysis catheter with distal tip located in region of junction of superior vena cava and right atrium. No evidence of pneumothorax. D/ / 09/22/2017 19:14:21 Tez Contreras MD / [facility] Interpreting Provider: Tez Contreras MD Consult Discharge Plan - Plan Referrals: NONE,PCP [Primary Care Provider] - <Mahesh Baez - Last Filed: 09/23/17 16:01> Hospitalist Progress Note - Encounter Date of Encounter: 09/23/17 - Exam Vitals: Temp Pulse Resp BP Pulse Ox 98.6 F 75 14 108/79 100 09/23/17 12:00 09/23/17 12:00 09/23/17 12:00 09/23/17 12:00 09/23/17 12:00 - Assessment and Plan (1) Borderline personality disorder Current Visit: No Status: Acute (2) Suicide attempt Current Visit: Yes Status: Acute (3) [place] poisoning Current Visit: Yes Status: Acute (4) Abdominal pain Current Visit: Yes Status: Resolved (5) Hypokalemia Current Visit: Yes Status: Acute (6) Alcohol abuse Current Visit: Yes Status: Acute (7) Hypertension Current Visit: Yes Status: Acute (8) Hypothyroidism Current Visit: Yes Status: Acute (9) DVT prophylaxis Current Visit: Yes Status: Acute - Time Spent with Patient Total time spent is greater than 50% in coordination of care (as documented) at patient's floor/unit and/or counseling patient: Internal Medicine: Result - Labs CBC & Chem 7: 09/23/17 05:05 09/23/17 12:05 Labs: Short CBC 09/22/17 09/23/17 Range/Units 16:56 05:05 WBC 6.7 7.6 (4.3-11.1) K/mcL Hgb 9.9 L 8.7 L (11.5-15.4) g/dL Hct 31.3 L 27.4 L (35.3-44.9) % Plt Count 157 158 (140-400) K/mcL Neutrophils # 5.5 5.6 (1.6-8.9) K/mcL BMP 09/22/17 09/22/17 09/22/17 15:50 16:56 22:29 Sodium 135 L 134 L 139 Potassium 2.7 L 2.7 L 2.7 L Chloride 107 107 106 Carbon Dioxide 24 22 L 27 BUN 3 L 3 L < 2 L Creatinine 0.73 0.73 0.43 L Glucose 83 81 85 Calcium 7.8 L 7.7 L 8.0 L 09/23/17 09/23/17 05:05 12:05 Sodium 135 L Potassium 2.4 L* 3.7 D Chloride 105 Carbon Dioxide 28 BUN 2 L Creatinine 0.60 Glucose 105 Calcium 7.3 L Cardiac Enzymes 09/22/17 Range/Units 14:03 Troponin I < 0.03 (< 0.04) ng/mL - ABG Interpretation ABG results: PT/INR, D-dimer PT 11.7 Seconds (9.4-12.1) 09/22/17 14:58 - Impressions Impressions Chest X-Ray 09/22/17 18:33 IMPRESSION: Status post placement of right internal jugular temporary dialysis catheter with distal tip located in region of junction of superior vena cava and right atrium. No evidence of pneumothorax. D/ / 09/22/2017 19:14:21 Tez Contreras MD / [facility] Interpreting Provider: Tez Contreras MD - Attending Attestation I have seen and examined this patient independently. I have discussed with resident physician Dr. Beltran regarding the management plan. Agree with the documentation. <Richardson Beltran - Last Filed: 09/23/17 13:08> (1) [place] poisoning Qualifiers: Encounter type: initial encounter Injury intent: intentional self-harm Qualified Code(s): T56.892A - Toxic effect of other metals, intentional self- harm, initial encounter (3) Bipolar disorder Qualifiers: Active/Remission status: currently active Current bipolar episode type: depressed Current episode severity: severe Psychotic features: without psychotic features Qualified Code(s): F31.4 - Bipolar disorder, current episode depressed, severe, without psychotic features (5) Abdominal pain Qualifiers: Abdominal location: generalized Qualified Code(s): R10.84 - Generalized abdominal pain (7) Hypertension Qualifiers: Hypertension type: essential hypertension Qualified Code(s): I10 - Essential (primary) hypertension <Mahesh Baez - Last Filed: 09/23/17 16:01> (3) [place] poisoning Qualifiers: Encounter type: initial encounter Injury intent: intentional self-harm Qualified Code(s): T56.892A - Toxic effect of other metals, intentional self- harm, initial encounter (4) Abdominal pain Qualifiers: Abdominal location: generalized Qualified Code(s): R10.84 - Generalized abdominal pain (7) Hypertension Qualifiers: Hypertension type: essential hypertension Qualified Code(s): I10 - Essential (primary) hypertension
[2017-09-23] MEDS ORDERED: Ipratropium/Albuterol Neb 3 ML IH PRN (13:22)
[2017-09-23] MEDS ORDERED: Naloxone 0.4 MG/ML INJ IVP PRN (13:22)
[2017-09-23] MEDS: Gabapentin 400 MG CAPSULE PO SCH (20:24)
[2017-09-23] MEDS ORDERED: clonazePAM 1 MG TABLET PO SCH (21:00)
[2017-09-24] MEDS: Acetaminophen 325 MG TABLET PO PRN ×2 (00:13→07:52)
[2017-09-24] MEDS: *HR* Heparin 5,000 UNIT/ML VIAL SQ SCH (06:03)
[2017-09-24 07:09] LABS: BUN/Creatinine Ratio 6 (6-26); Blood Urea Nitrogen 4 mg/dL (6-20); Calcium 8.2 mg/dL (8.6-10.3); Carbon Dioxide 29 mEq/L (23-29); Chloride 103 mEq/L (98-107); Glucose 102 mg/dL (70-105); Magnesium 1.9 mg/dL (1.6-2.6); Osmolality,Calculated 279 (280-300); Potassium 2.8 mEq/L (3.5-5.1); Sodium 136 mEq/L (136-145); eGFR For Non-African Americans > 60 (> 60)
[2017-09-24] MEDS: Gabapentin 400 MG CAPSULE PO SCH (07:51)
[2017-09-24] MEDS ORDERED: amLODIPine 5 MG TABLET PO SCH (09:00)
--- NOTE | 2017-09-24 09:20 | Electrocardiograph Report ---
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
--- NOTE | 2017-09-24 13:34 | Internal Med Progress Note ---
<Richardson Beltran Alysia - Last Filed: 09/24/17 15:42> Hospitalist Progress Note - Encounter Date of Encounter: 09/24/17 Time of Encounter: 09:00 - Subjective Interval History: 37-year-old female admitted with lithium toxicity secondary to suicide attempt. Psychiatry saw evaluated the patient and recommended hold home meds until medically stable and to contact them when she is medically clear for further evaluation. This morning she reports that she is feeling back to normal. Denies any symptoms. Denies fevers, chills, chest pain, dyspnea, nausea, vomiting, change in bowels, dysuria, or lower extremity edema. Denies tremors or hallucinations. She reports that her mood is better today as well. Denies SI currently - states that she would not have taken too much medication if she had not been drinking alcohol. She is wanting to leave because she has a court hearing tomorrow. - Exam Vitals: Temp Pulse Resp BP Pulse Ox 98.4 F 68 18 129/79 99 09/24/17 09:00 09/24/17 09:00 09/24/17 09:00 09/24/17 09:00 09/24/17 09:00 Exam: GEN: No acute distress, A&O3 HEAD: Atraumatic, normocephalic EYES: Pupils symmetric, sclera white, conjunctiva pink HEART: RRR, normal S1 and S2, no murmurs LUNGS: Clear to auscultation bilaterally, no wheezes, rhonchi, or crackles ABD: Soft, nontender, nondistended, bowel sounds present EXT: No edema noted, pulses 2/4 NEURO: No focal deficits, cooperative with exam PSYCH: alert, cooperative, no SI/HI - Assessment and Plan (1) [place] poisoning Status: Acute Assessment and Plan: Patient takes lithium for bipolar disorder, she admits to taking excess along with alcohol and suicide attempt [place] level was 2.5 on arrival, but increase to > 15 - Now lithium 1.2 after urgent dialysis 2 days ago - Poison control recommends a lithium level < 1.2, continue current management Patient with good UOP Continue to monitor patient's symptoms and lithium levels Continue telemetry and sitter Will have psych come reevaluate the patient today for further management (2) Suicide attempt Status: Acute Assessment and Plan: Psychiatry consulted and evaluated the patient, recommended contacting them once the patient is medically stable Continue sitter (3) Bipolar disorder Status: Chronic Assessment and Plan: as above - medications per psychiatry (4) Hypokalemia Status: Acute Assessment and Plan: Potassium 2.8 this morning, replace Will recheck this afternoon and continue replacement as needed Likely related to loose stools secondary to lithium No other concerning signs or symptoms Continue to monitor Continue telemetry at this time (5) Abdominal pain Status: Resolved (6) Alcohol abuse Status: Acute Assessment and Plan: Patient reports intermittent alcohol use, no signs and symptoms of acute withdrawal Continue to monitor symptoms (7) Hypertension Status: Acute Assessment and Plan: Normotensive. Continue meds (8) Hypothyroidism Status: Acute Assessment and Plan: Continue med DVT Prophylaxis: Subcutaneous heparin - Time Spent with Patient Total time spent is greater than 50% in coordination of care (as documented) at patient's floor/unit and/or counseling patient: Internal Medicine: Result - Labs CBC & Chem 7: 09/23/17 05:05 09/24/17 14:59 Labs: BMP 09/24/17 06:22 Sodium 136 Potassium 2.8 L Chloride 103 Carbon Dioxide 29 BUN 4 L Creatinine 0.63 Glucose 102 Calcium 8.2 L - ABG Interpretation ABG results: PT/INR, D-dimer PT 11.7 Seconds (9.4-12.1) 09/22/17 14:58 Consult Discharge Plan - Plan Instructions: Bipolar Disorder (DC) Additional Instructions: Take your medications as prescribed Take potassium supplement daily Have your potassium level checked in one week If you have any suicidal thoughts, called 911 immediately Follow-up with your psychiatrist in one week Follow-up with your primary care physician Referrals: Austen Izquierdo MD [Primary Care Provider] - (Web request 09/24/2017) NONE,PCP [Non-Partnered Physician] - Prescriptions: Potassium Chloride 20 meq PO DAILY #7 [email or web address] <Mahesh Baez - Last Filed: 09/24/17 17:26> Hospitalist Progress Note - Encounter Date of Encounter: 09/24/17 - Exam Vitals: Temp Pulse Resp BP Pulse Ox 98.6 F 63 17 134/86 100 09/24/17 15:58 09/24/17 15:58 09/24/17 15:58 09/24/17 15:58 09/24/17 15:58 - Assessment and Plan (1) Borderline personality disorder Status: Chronic (2) Suicide attempt Status: Resolved (3) [place] poisoning Status: Acute (4) Abdominal pain Status: Resolved (5) Hypokalemia Status: Acute (6) Alcohol abuse Status: Acute (7) Hypertension Status: Acute (8) Hypothyroidism Status: Acute (9) DVT prophylaxis Status: Acute - Time Spent with Patient Total time spent is greater than 50% in coordination of care (as documented) at patient's floor/unit and/or counseling patient: Internal Medicine: Result - Labs CBC & Chem 7: 09/23/17 05:05 09/24/17 14:59 Labs: BMP 09/24/17 09/24/17 06:22 14:59 Sodium 136 Potassium 2.8 L 3.4 L Chloride 103 Carbon Dioxide 29 BUN 4 L Creatinine 0.63 Glucose 102 Calcium 8.2 L - ABG Interpretation ABG results: PT/INR, D-dimer PT 11.7 Seconds (9.4-12.1) 09/22/17 14:58 - Attending Attestation I have seen and examined this patient independently. I have discussed with the resident physician Dr. Beltran regarding the management plan. Agree with the documentation. <Richardson Beltran - Last Filed: 09/24/17 15:42> (1) [place] poisoning Qualifiers: Encounter type: initial encounter Injury intent: intentional self-harm Qualified Code(s): T56.892A - Toxic effect of other metals, intentional self- harm, initial encounter (3) Bipolar disorder Qualifiers: Active/Remission status: currently active Current bipolar episode type: depressed Current episode severity: severe Psychotic features: without psychotic features Qualified Code(s): F31.4 - Bipolar disorder, current episode depressed, severe, without psychotic features (5) Abdominal pain Qualifiers: Abdominal location: generalized Qualified Code(s): R10.84 - Generalized abdominal pain (7) Hypertension Qualifiers: Hypertension type: essential hypertension Qualified Code(s): I10 - Essential (primary) hypertension (8) Hypothyroidism Qualifiers: Hypothyroidism type: unspecified Qualified Code(s): E03.9 - Hypothyroidism, unspecified <Mahesh Baez - Last Filed: 09/24/17 17:26> (3) [place] poisoning Qualifiers: Encounter type: initial encounter Injury intent: intentional self-harm Qualified Code(s): T56.892A - Toxic effect of other metals, intentional self- harm, initial encounter (4) Abdominal pain Qualifiers: Abdominal location: generalized Qualified Code(s): R10.84 - Generalized abdominal pain (7) Hypertension Qualifiers: Hypertension type: essential hypertension Qualified Code(s): I10 - Essential (primary) hypertension (8) Hypothyroidism Qualifiers: Hypothyroidism type: unspecified Qualified Code(s): E03.9 - Hypothyroidism, unspecified
[2017-09-24 15:59] VITALS: BP 134/86
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
--- NOTE | 2017-09-24 16:28 | Discharge Summary ---
<Richardson Beltran R - Last Filed: 09/24/17 16:25> - NOTES TO OUTPATIENT PROVIDER Notes to Outpatient Provider: Recheck BMP in one week. Follow closely with psychiatry - medications dispensed weekly Orders not resulted at time of discharge: Pending orders 09/25/17 04:00 Basic Metabolic Panel AM 0400 Date of Encounter: 09/24/17 Time of Encounter: 16:25 - Discharge Diagnosis (1) [place] poisoning Priority: Primary Status: Acute Qualifiers: Encounter type: initial encounter Injury intent: intentional self-harm Qualified Code(s): T56.892A - Toxic effect of other metals, intentional self- harm, initial encounter (2) Suicide attempt Priority: Secondary Status: Resolved (3) Bipolar disorder Priority: Secondary Status: Deleted Qualifiers: Current bipolar episode type: depressed Psychotic features: without psychotic features Qualified Code(s): F31.4 - Bipolar disorder, current episode depressed, severe, without psychotic features (4) Hypokalemia Priority: Secondary Status: Acute (5) Abdominal pain Priority: Secondary Status: Resolved Qualifiers: Abdominal location: generalized Qualified Code(s): R10.84 - Generalized abdominal pain (6) Alcohol abuse Priority: Secondary Status: Acute (7) Hypertension Priority: Secondary Status: Acute Qualifiers: Hypertension type: essential hypertension Qualified Code(s): I10 - Essential (primary) hypertension (8) Hypothyroidism Priority: Secondary Status: Acute Qualifiers: Hypothyroidism type: unspecified Qualified Code(s): E03.9 - Hypothyroidism , unspecified Hospital course: Ms. Hill is a 37 year old female with PMH of HTN, hypothyroidism, and bipolar disorder admitted for intentional lithium overdose. She was using alcohol and reports that she didnt want to be here anymore. She then later began to feel drowsy and called EMS. Initially lithium level was 2.5 but increased to >15. She received urgent dialysis per nephrology. Her electrolytes and lithium level was monitored closely and normalized to a therapeutic level of 1.2 by discharge. She was hypokalemic as well secondary to diarrhea related to lithium toxicity. Today her diarrhea has resolved and her potassium level is improved. She will given potassium supplements for 20 meq to take daily and an order for a repeat BMP in one week. The patient no longer reports any SI and states that if it had not been for the alcohol she would have never taken too many pills. Psychiatry evaluated the patient upon admission and then again upon the day of discharge. They have cleared her to go home with her mother as she is not in imminent danger to herself or others. Recommend resuming her home medications. Her medications will be dispensed in one week increments per her psychiatrist. She is hemodynamically stable and ready for discharge. Discharge discussed with: patient - Time Spent with Patient Total time spent providing and/or coordinating discharge services: - Discharge Medications Prescriptions: Potassium Chloride 20 meq PO DAILY #7 tab.er.prt Home Medications: Levothyroxine [Synthroid] 75 mcg PO QAM 02/07/17 [History] [place] Carbonate 150 mg PO BID 02/07/17 [History] [place] Carbonate 300 mg PO TID 02/07/17 [History] Gabapentin [Neurontin] 1,200 mg PO BID 02/13/17 [History] clonazePAM [Klonopin] 2 mg PO HS 02/13/17 [History] amLODIPine [Norvasc] 10 mg PO DAILY 09/21/17 [History] Metoprolol Succinate [Toprol Xl] 50 mg PO DAILY 09/22/17 [History] valACYclovir [Valtrex] 500 mg PO BID 09/22/17 [History] Potassium Chloride 20 meq PO DAILY #7 tab.er.prt 09/24/17 [Rx] Allergies/Adverse Reactions: 3 Allergy/AdvReac Type Severity Reaction Status Date / Time ketorolac [From Toradol] Allergy Rash Verified 09/21/17 23:31 Paroxetine [From Paxil] Allergy Rash Verified 09/21/17 23:31 promethazine [From Phenergan] Allergy Rash Verified 09/21/17 23:31 tramadol Allergy Rash Verified 09/21/17 23:31 Cyclobenzaprine AdvReac Agitated Verified 09/21/17 23:31 [From Flexeril] Date of admission: 09/22/17 01:33 Primary care physician: Austen Izquierdo MD Consults: 09/22/17 02:22 Consult to Psychiatry [CONS] Routine Consulting Provider: Psychiatry [place] Reason consult: Other Other reason and/or additional details: suicidal ideation Call Completed: No 09/22/17 02:44 Consult to Perioperative Tech [CONS] Routine Reason for SW Consult: patient outpatient svcs set up, past psych history, counseling 09/22/17 05:01 Consult to Nephrology [CONS] Routine Consulting Provider: [facility] Anna/CHRISTY/JONATHAN/MARY Reason for Consult: lithium toxicity with levels of 3.5 Call Completed: Yes Discharging clinician: Richardson Beltran Anticipated date of discharge: 09/24/17 - Constitutional Vitals: Temp Pulse Resp BP Pulse Ox 98.6 F 63 17 134/86 100 09/24/17 15:58 09/24/17 15:58 09/24/17 15:58 09/24/17 15:58 09/24/17 15:58 - Other Additional findings: GEN: No acute distress, A&O3 HEAD: Atraumatic, normocephalic EYES: Pupils symmetric, sclera white, conjunctiva pink HEART: RRR, normal S1 and S2, no murmurs LUNGS: Clear to auscultation bilaterally, no wheezes, rhonchi, or crackles ABD: Soft, nontender, nondistended, bowel sounds present EXT: No edema noted, pulses 2/4 NEURO: No focal deficits, cooperative with exam PSYCH: alert, cooperative, no SI/HI - Patient Status Disposition: Home, Self-Care Condition: Fair Functional capacity at discharge: independent ambulation Overall status at discharge: patient is progressing back to baseline - Discharge Instructions Instructions: Bipolar Disorder (DC) Follow Up With: Austen Izquierdo MD [Primary Care Provider] - (Web request 09/24/2017) NONE,PCP [Non-Partnered Physician] - Additional Instructions: Take your medications as prescribed Take potassium supplement daily Have your potassium level checked in one week If you have any suicidal thoughts, called 911 immediately Follow-up with your psychiatrist in one week Follow-up with your primary care physician - Diet and Activity Activity: as per physical therapy, increase activity as tolerated Diet: advance to your usual diet <Mahesh Baez - Last Filed: 09/24/17 17:29> Date of Encounter: 09/24/17 - Discharge Diagnosis (1) Borderline personality disorder Status: Chronic (2) Suicide attempt Status: Resolved (3) [place] poisoning Status: Acute Qualifiers: Encounter type: initial encounter Injury intent: intentional self-harm Qualified Code(s): T56.892A - Toxic effect of other metals, intentional self- harm, initial encounter (4) Abdominal pain Status: Resolved Qualifiers: Abdominal location: generalized Qualified Code(s): R10.84 - Generalized abdominal pain (5) Hypokalemia Status: Acute (6) Alcohol abuse Status: Acute (7) Hypertension Status: Acute Qualifiers: Hypertension type: essential hypertension Qualified Code(s): I10 - Essential (primary) hypertension (8) Hypothyroidism Status: Acute Qualifiers: Hypothyroidism type: unspecified Qualified Code(s): E03.9 - Hypothyroidism , unspecified (9) DVT prophylaxis Status: Acute Hospital course: Ms. Hill is a 37 year old female - Time Spent with Patient Total time spent providing and/or coordinating discharge services: Date of admission: 09/22/17 01:33 Primary care physician: Austen Izquierdo MD Consults: 09/22/17 02:22 Consult to Psychiatry [CONS] Routine Consulting Provider: Psychiatry [facility] Reason consult: Other Other reason and/or additional details: suicidal ideation Call Completed: No 09/22/17 02:44 Consult to Perioperative Tech [CONS] Routine Reason for SW Consult: patient outpatient svcs set up, past psych history, counseling 09/22/17 05:01 Consult to Nephrology [CONS] Routine Consulting Provider: [facility]ney Anna/CHRISTY/JONATHAN/MARY Reason for Consult: lithium toxicity with levels of 3.5 Call Completed: Yes - Constitutional Vitals: Temp Pulse Resp BP Pulse Ox 98.6 F 63 17 134/86 100 09/24/17 15:58 09/24/17 15:58 09/24/17 15:58 09/24/17 15:58 09/24/17 15:58 - Attending Attestation I have seen and examined this patient independently. I have discussed with the resident physician Dr. Beltran regarding the discharge and follow up plan. Agree with the documentation.
--- NOTE | 2017-09-24 18:39 | Electrocardiograph Report ---
[place] [id number] Test Date: 2017-09-21 Pat Name: Magalys Hill Department: 103 Room: 2A63 Gender: F Hog Dropper: [id number] : [id number] Requested By: Colin Serra Order Number: [id number] Reading MD: Michael Pepper Measurements Intervals Fisher Rate: 70 P: 39 MS: 210 QRS: 15 QRSD: 92 T: 3 QT: 379 QTc: 400 Interpretive Statements SINUS RHYTHM WITH FIRST DEGREE AV BLOCK Electronically Signed On 09-24-2017 18:37:44 EDT by Michael Pepper
== END 2017-09-24 16:43 | disposition home or self-care (01) | DRG 918 ==
LOC: 2NNU 23:26 → EMEROO 23:26 → 2NNU 09-22 01:56 → ICNU 09-22 15:49 → 2ANU 09-23 14:31
PROVIDERS: ADMIT Student in an Organized Health Care Education/Training Program; ATTEND Student in an Organized Health Care Education/Training Program